=== PATIENT | female | born 1940 | race Caucasian/White ===

== ENCOUNTER 2017-01-14 06:24 | Day surgery (SDC) | payer OTHER ==
--- NOTE | 2016-12-10 11:55 | HP ---
DATE OF ADMISSION: DATE OF DICTATION: 12/07/2016 REASON FOR ADMISSION: Back lipoma. HISTORY: This is a 76-year-old patient with a large mass overlying the upper right back. She has had this for many years and now the mass has gotten so large that it causes her discomfort. PAST MEDICAL HISTORY: The patient has a history of a meningioma. She is status post craniotomy. She has a history of back stenosis, status post spinal surgery. She has decreased function of the left leg after the craniotomy. Patient has coronary artery disease, she is status post [place], hypertension, hypercholesterolemia, and kidney issues. PAST SURGICAL HISTORY: As mentioned above. MEDICATIONS: Keppra 500 mg q.12, metoprolol 100 mg daily, Eliquis 5 mg daily, lisinopril/hydrochlorothiazide 20/25 mg 1 tablet daily, Lipitor, digoxin, glyburide. ALLERGIES: None. SOCIAL HISTORY: Patient does not smoke nor drink. PHYSICAL EXAMINATION: Back: Patient examined in the erect and supine position. She has a large softball size soft tissue mass just medial and inferior to the right scapula. The mass is soft, fairly well demarcated. The skin overlying the mass is thinned. 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 This is a 76-year-old female with a very large soft tissue mass overlying the right back. It is so large that it causes her discomfort. She has multiple medical co-morbidities and still wants to proceed with surgery to have this surgically removed. 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 If this is possible, patient will be off Eliquis for 4 days prior to surgery and 3 days after. If this is not possible, patient will require Lovenox bridge and deal with higher risks of hematoma and ecchymosis. Patient accepting of risks and will continue. The indications, alternatives, and complications discussed, questions answered. Will plan to obtain written consent the day of surgery. Rebecca RECIO [id number] cc: Can Gaviria MD; Brooks Seals MD
[2017-01-10 14:32] VITALS: BMI 29.5
[2017-01-14] MEDS ORDERED: ePHEDrine SULFATE 50 MG/1 ML AMPULE ONE (07:08)
[2017-01-14] MEDS ORDERED: LIDOCAINE HCL/PF 2% SDV 5ML VIAL ONE (07:09)
[2017-01-14] MEDS ORDERED: LIDOCAINE HCL 1%, 10 MG/ML (20ML VIAL) ONE ×2 (07:12→08:31)
[2017-01-14] MEDS ORDERED: LIDOCAINE 1%-EPI 1:100,000 30 ML MDV IJ ONE (07:12)
[2017-01-14] MEDS ORDERED: MIDAZOLAM HCL 2 MG/2 ML SINGLE DOSE VIAL ONE (08:03)
[2017-01-14] MEDS ORDERED: PROPOFOL 20 ML ONE (08:16)
[2017-01-14] MEDS ORDERED: ONDANSETRON 4 MG/2 ML VIAL IVPUSH PRN (09:13)
[2017-01-14] MEDS ORDERED: LACTATED RINGERS SOLUTION 1,000 ML IV SCH (09:15)
[2017-01-14 11:06] VITALS: BP 114/58; PULSE 74; TEMP 98
--- NOTE | 2017-01-14 11:50 | OP ---
DATE OF OPERATION: 01/14/2017 PREOPERATIVE DIAGNOSIS: Soft tissue mass of the back. POSTOPERATIVE DIAGNOSIS: Soft tissue mass of the back. PROCEDURE: Excision of a soft tissue mass of the upper back with 6-cm intermediate wound closure. SURGEON: Maurilio Sanderson MD WARE FINISHER: None. ANESTHESIA: Ministerio Monsalve MD (MAC/1% lidocaine without epinephrine) ESTIMATED BLOOD LOSS: Minimal. SPECIMEN: Soft tissue mass. INDICATION FOR PROCEDURE: This is a 76-year-old female with very longstanding history of having a soft tissue mass in her right upper back. The mass has gotten significantly larger, now she has discomfort in the area. She wishes to have this removed. DESCRIPTION OF PROCEDURE: Patient identified and appropriately positioned on the operating room table. She was placed in a left lateral decubitus position. The area prepped and draped with ChloraPrep. Lidocaine 1% without epinephrine was used for anesthesia, approximately 20 mL. A vertical incision overlying the mass was made and deepened into subcutaneous tissue. The mass was noted to be just beneath the dermis and encroached upon the dermis. It was off the dermis with sharp dissection. The mass was removed in its entirety. The subcutaneous space was irrigated, the operative field examined, noted to be hemostatic. Due to the large cavity left, a 1/4-inch [place] drain was placed into the subcutaneous tissue and brought out through the lower aspect of the incision. The dermis was reapproximated with interrupted inverted 3-0 Vicryl sutures and the skin closed with a 4-0 subcuticular Biosyn followed Dermabond. This patient is going to have ischemic changes to the skin due to the flaps and how this mass grew into the dermis. This will be explained to the patient postoperatively. At the conclusion of the case, sponge and needle counts were correct. ATTESTATION: Brief operative note handwritten on the preprinted form. Rebecca RECIO [id number] cc: MD Brooks Nguyen MD [facility]ERE[facility]me
== END 2017-01-14 11:08 | disposition home or self-care (01) ==
LOC: FASU 06:24
PROVIDERS: ATTEND Surgery
PROC: 0JB70ZZ Excision of Back Subcutaneous Tissue and Fascia, Open Approach (ICD-10-PCS; principal; 2017-01-14 08:31)
DX: M79.89 Other specified soft tissue disorders (principal)
CPT/HCPCS: 88304-TC; 94760

== ENCOUNTER 2021-03-04 07:30 | Day surgery (SDC) | payer OTHER ==
[2021-03-04] MEDS ORDERED: ONDANSETRON 4 MG/2 ML VIAL IVPUSH PRN (07:54)
[2021-03-04] MEDS ORDERED: LACTATED RINGERS SOLUTION 1,000 ML IV SCH (08:00)
[2021-03-04] MEDS: TROPICAMIDE 1% OPHTH SOLN 15 ML BOTTLE ONE ×3 (08:05→08:15)
[2021-03-04] MEDS: CIPROFLOXACIN 0.3% EYE DROPS 5 ML BOTTLE ONE ×3 (08:05→08:15)
[2021-03-04] MEDS: CYCLOPENTOLATE 2% OPHTH SOLN 2 ML BOTTLE ONE ×3 (08:05→08:15)
[2021-03-04] MEDS: PHENYLEPHRINE 2.5% OPHTH SOLN 15 ML BOTTLE ONE ×3 (08:05→08:15)
[2021-03-04 08:23] VITALS: TEMP 98.1; BMI 33.2
[2021-03-04] MEDS ORDERED: MIDAZOLAM HCL 2 MG/2 ML SINGLE DOSE VIAL ONE (08:50)
[2021-03-04] MEDS ORDERED: DEXAMETHASONE SOD PHOSPHATE 4 MG/1 ML VIAL ONE (09:17)
[2021-03-04] MEDS ORDERED: ONDANSETRON 4 MG/2 ML VIAL ONE (09:17)
[2021-03-04 10:24] VITALS: BP 129/69; PULSE 72
== END 2021-03-04 10:35 | disposition home or self-care (01) ==
LOC: FASU 07:30
PROVIDERS: ATTEND Ophthalmology
PROC: 08RK3JZ Replacement of Left Lens with Synthetic Substitute, Percutaneous Approach (ICD-10-PCS; principal; 2021-03-04 09:20)
DX: H26.8 Other specified cataract (principal)
CPT/HCPCS: 82962

== ENCOUNTER 2021-03-25 06:32 | Day surgery (SDC) | payer OTHER ==
[2021-03-23 10:39] VITALS: BMI 33.2
[2021-03-25] MEDS ORDERED: TETRACAINE 0.5% OPHTH SOLN 2 ML BOTTLE ONE (07:11)
[2021-03-25] MEDS ORDERED: EPINEPHrine/PF 1 MG/1 ML (1:1,000) AMPULE ONE (07:11)
[2021-03-25] MEDS ORDERED: LIDOCAINE 1% P/F 10 MG/ML VIAL ONE (07:11)
[2021-03-25] MEDS ORDERED: BSS (NA/CA/MG/K) BALANCED SALT SOLUTION OPHTH SOLN 15 ML BOTTLE ONE (07:11)
[2021-03-25] MEDS ORDERED: NEO/POLYMYX B SULF/DEXAMETH OPHTHALMIC 5ML BOTTLE ONE (07:12)
[2021-03-25] MEDS ORDERED: CARBACHOL 0.01% INTRA-OCULAR 1.5 ML VIAL ONE (07:12)
[2021-03-25] MEDS ORDERED: EPHEDRINE SULFATE/0.9% NACL/PF 50 MG/10 ML SYRINGE NR ONE (07:23)
[2021-03-25] MEDS ORDERED: SUCCINYLCHOLINE CHLORIDE 200 MG/10 ML SYRINGE ONE (07:24)
[2021-03-25] MEDS ORDERED: MIDAZOLAM HCL 2 MG/2 ML SINGLE DOSE VIAL ONE (07:24)
[2021-03-25] MEDS: CYCLOPENTOLATE 2% OPHTH SOLN 2 ML BOTTLE ONE ×3 (07:25→07:35)
[2021-03-25] MEDS: TROPICAMIDE 1% OPHTH SOLN 15 ML BOTTLE ONE ×3 (07:25→07:35)
[2021-03-25] MEDS: PHENYLEPHRINE 2.5% OPHTH SOLN 15 ML BOTTLE ONE ×3 (07:25→07:35)
[2021-03-25] MEDS: CIPROFLOXACIN 0.3% EYE DROPS 5 ML BOTTLE ONE ×3 (07:25→07:35)
[2021-03-25 09:18] VITALS: TEMP 98.1
[2021-03-25 09:19] VITALS: BP 141/67; PULSE 54
== END 2021-03-25 09:21 | disposition home or self-care (01) ==
LOC: FASU 06:32
PROVIDERS: ATTEND Ophthalmology
PROC: 08RJ3JZ Replacement of Right Lens with Synthetic Substitute, Percutaneous Approach (ICD-10-PCS; principal; 2021-03-25 08:09)
DX: H26.8 Other specified cataract (principal)
CPT/HCPCS: 82962